=== PATIENT | male | born 1980 | race Caucasian/White ===

== ENCOUNTER 2024-07-08 19:59 | Emergency (ER) | payer SELFPAY ==
[2024-07-08 20:06] VITALS: BP 127/91; PULSE 127; TEMP 36.5; O2SAT 99; BMI 28.5
--- NOTE | 2024-07-08 20:27 | ED_ITS ---
HPI - Dental/Oral General Chief complaint: Dental/Oral Stated complaint: TOOTHACHE Time Seen by Provider: 07/08/24 20:01 Source: patient Mode of arrival: walk-in History of Present Illness HPI Narrative: Patient is a 44-year-old male who presents to the emergency department for evaluation of swelling of the left side of the face for the last 2 days. Patient states he had leftover amoxicillin at home which he took prior to arrival. He has continued to have maxillary swelling over the day which prompted him to come to the ER. He reports swelling to the roof of the mouth just posterior to tooth #9 where he has an avulsion of the tooth to the gumline. He does have a dentist he plans to call on Wednesday. No fevers or vomiting. Related Data Previous Rx's ?Medication ?Instructions ?Recorded clindamycin HCl 150 mg capsule 300 mg (2 x 150 mg) PO Q6H 10 days 07/08/24 #80 caps hydrocodone 5 mg-acetaminophen 325 1 tab PO Q6H PRN pa in 3 days #12 07/08/24 mg tablet tabs ketorolac 10 mg tablet 10 mg PO TID PRN pain #10 ta bs 07/08/24 ondansetron 4 mg disintegrating 4 mg PO Q6H PRN nausea and 07/08/24 tablet vomiting #12 tabs Allergies Allergy/AdvReac Type Severity Reaction Status Date / Time No Known Drug Allergies Allergy Verified 07/08/24 20:06 Review of Systems ROS Constitutional Denies: fever or chills Ears, nose, mouth, and throat Reports: mouth pain; Denies: throat pain, swelling of lips/tongue or nasal congestion Cardiovascular Denies: chest pain Respiratory Denies: shortness of breath or cough Gastrointestinal Denies: nausea or vomiting Integumentary/Breast Denies: rash or itching Hematologic/Lymphatic Denies: easy bruising or easy bleeding PFSH PFS Social History Little interest or pleasure in doing things: not at all Feeling down, depressed, or hopeless: not at all Exam Narrative Exam Narrative: Gen.: Awake, alert, in no distress Head: Normocephalic, atraumatic ENT: Moist mucous membranes, tooth #9 is avulsed to the gumline, diffuse maxillary swelling noted externally on the face as well as of the maxilla on the gumline. Roof of the mouth with soft tissue swelling, no open areas or drainage. No redness or swelling under the tongue. Clear speech noted. No trismus or drooling. Uvula midline. Respiratory: No respiratory distress Extremities: Moves extremities equally Psych: Normal mood and affect Neuro: No focal neuro deficit Skin: Warm, dry, intact Constitutional Vital Signs, click to edit/add: Last Vital Signs Temp 97.7 F 07/08/24 20:06 Pulse 127 H 07/08/24 20:06 Resp 18 07/08/24 20:06 BP 127/91 07/08/24 20:06 Pulse Ox 99 07/08/24 20:06 O2 Del Method Room Air 07/08/24 20:06 Course Vital Signs Vital signs: Vital Signs Temperature 97.7 F 07/08/24 20:06 Pulse Rate 127 H 07/08/24 20:06 Respiratory Rate 18 07/08/24 20:06 Blood Pressure 127/91 07/08/24 20:06 Pulse Oximetry 99 07/08/24 20:06 Oxygen Delivery Method Room Air 07/08/24 20:06 Temperature 97.7 F 07/08/24 20:06 Pulse Rate 127 H 07/08/24 20:06 Respiratory Rate 18 07/08/24 20:06 Blood Pressure 127/91 07/08/24 20:06 Pulse Oximetry 99 07/08/24 20:06 Oxygen Delivery Method Room Air 07/08/24 20:06 MDM - Dental/Oral MDM Narrative Medical decision making narrative: Exam is consistent with dental abscess, likely secondary to tooth avulsion to the gumline with root exposure. Patient started on IV clindamycin in the emergency department with pain medication and topical analgesia. He is discharged home with clindamycin, short course of analgesics and Zofran as needed. He will call his dentist office on Wednesday for reevaluation of the dental abscess. Heart rate rechecked prior to discharge. Airway is widely open and patent in the ER with no evidence of Junior angina or other airway compro mise. Return to the ER if symptoms change or worsen SUPERVISED APC VISIT, PHYSICIAN ATTESTATION: Based on the medical record the care appears appropriate. ? Medical Records Attestation: I reviewed the patient's medical records. Discharge Plan Discharge Chief Complaint: Dental/Oral Clinical Impression: Toothache, Dental abscess Patient Disposition: Home, Self-Care Time of Disposition Decision: 20:25 Condition: Good Prescriptions / Home Meds: New hydrocodone-acetaminophen 5-325 mg tablet 1 tab PO Q6H PRN (Reason: pain) 3 Days Qty: 12 0RF Rx Instructions: DX: K08.89 clindamycin HCl 150 mg capsule 300 mg PO Q6H 10 Days Qty: 80 0RF ketorolac 10 mg tablet 10 mg PO TID PRN (Reason: pain) Qty: 10 0RF ondansetron 4 mg tablet,disintegrating 4 mg PO Q6H PRN (Reason: nausea and vomiting) Qty: 12 0RF Print Language: Uzbek Instructions: Dental Abscess (ED) Additional Instructions: Please call your dentist office on Wednesday for follow up and finish the entire course of clindamycin Referrals: Physician,Non-Staff, MD [Primary Care Provider] - 1 week
[2024-07-08] MEDS: MORPHINE SULFATE 4 MG/ML VIAL IV (20:46)
[2024-07-08] MEDS: KETOROLAC TROMETHAMINE 30 MG/ML VIAL IVP (20:46)
[2024-07-08] MEDS: ONDANSETRON PF 4 MG/2 ML VIAL IV (20:46)
[2024-07-08] MEDS: CLINDAMYCIN PHOSPHATE/D5W 900 MG/50 ML PREMIX 100 MG IV (20:46)
[2024-07-08] MEDS: BENZOCAINE 30 ML, lidocaine HCL 15 ML MM (20:47)
[2024-07-08 21:11] VITALS: PULSE 78; O2SAT 99
== END 2024-07-08 21:15 | disposition home or self-care (01) ==
PROVIDERS: Emergency Provider Emergency Medicine
DX: K08.89 Other specified disorders of teeth and supporting structures (principal); K04.7 Periapical abscess without sinus; R22.0 Localized swelling, mass and lump, head
CPT/HCPCS: 96365; 96375; 99284; J0736; J1885; J2270; J2405